=== PATIENT | female | born 1990 | race Two or more races ===

== ENCOUNTER 2017-12-03 07:45 | Inpatient (IN) | payer OTHER ==
[~2017-12-03] VITALS: Ht 154.9 cm; Wt 3.2 kg
[~2017-12-03 07:45] MED LIST: PRENATAL1 TAB; ZANTAC300 MG
[2017-12-17] MEDS ORDERED: OXYC1TAB9 PO (14:14)
[2017-12-17] MEDS ORDERED: DOCUSATE SODIU100 MG PO (14:14)
== END 2017-12-17 14:35 | disposition home or self-care (01) | DRG 765 ==
LOC: LDR 12-13 19:48 → OB/GYN 12-14 16:54 → LDR 12-22 07:45 → NACU 12-22 07:45
PROVIDERS: Specialist
PROC: 0UL70ZZ Occlusion of Bilateral Fallopian Tubes, Open Approach (ICD-10-PCS; 2017-12-14)
PROC: 3E033VJ Introduction of Other Hormone into Peripheral Vein, Percutaneous Approach (ICD-10-PCS; 2017-12-14)
PROC: 10D00Z1 Extraction of Products of Conception, Low, Open Approach (ICD-10-PCS; principal; 2017-12-14 12:00)
DX: O62.1 Secondary uterine inertia (principal); O75.3 Other infection during labor; Z3A.38 38 weeks gestation of pregnancy; Z37.0 Single live birth; Z30.2 Encounter for sterilization